=== PATIENT | female | born 1955 | race Caucasian/White ===

== ENCOUNTER 2017-09-19 09:29 | Outpatient (CLI) | payer OTHER | END 2017-09-19 09:30 | disposition home or self-care (01) | LOC: BICMAMMO 09:29 | PROVIDERS: ATTEND Obstetrics & Gynecology | DX: Z12.31 Encounter for screening mammogram for malignant neoplasm of breast (principal) | CPT/HCPCS: 77063; 77067 ==

== ENCOUNTER 2018-01-27 00:04 | Emergency (ER) | payer OTHER ==
[2018-01-27 00:55] LABS: #Basophils 0.1 thou/uL (0.0-0.2); #Eosinphils 0.2 thou/uL (0.0-0.7); #Lymphocytes 2.6 thou/uL (1.20-3.40); #Monocytes 0.8 thou/uL (0.11-0.59); #Neutrophils 8.2 thou/uL (1.40-6.50); %Basophils 0.6 % (0.0-1.0); %Eosinophils 1.5 % (0.0-10.0); %Lymphocytes 21.7 % (21.0-51.0); %Monocytes 6.8 % (0.0-10.0); %Neutrophils 69.3 % (42.0-75.0); Hemoglobin 12.7 g/dL (12.0-16.0); Mean Corpuscular HGB CONC 33.2 g/dL (32.0-36.0); Mean Corpuscular Hemoglobin 29.8 pg (27.0-31.0); Mean Corpuscular Volume 89.9 fL (78.0-98.0); Mean Platelet Volume 7.3 fL (7.4-10.4); Platelet Count 290 thou/uL (130-400); RBC Distribution Width 11.1 % (11.5-14.5); Red Blood Cell (RBC) Count 4.27 mill/uL (4.20-5.40); White Blood Cell (WBC) Count 11.8 thou/uL (4.8-10.8)
[2018-01-27] MEDS ORDERED: Ondansetron PF 4 MG/2 ML Vial ONE (01:13)
[2018-01-27] MEDS ORDERED: Glycopyrrolate 0.2 MG/ML 5 ML SYRINGE SLOW IVP SCH (01:15)
[2018-01-27] MEDS ORDERED: Glycopyrrolate 0.4 MG/ 2 ML VIAL SLOW IVP SCH (01:15)
[2018-01-27 01:17] LABS: ALT (SGPT) 14 U/L (8-55); AST (SGOT) 16 U/L (5-34); Albumin 4.1 g/dL (3.4-4.8); Alkaline Phosphatase 104 U/L (40-150); Anion Gap 12 mmol/L (10-20); BUN (Urea Nitrogen) 22 mg/dL (9.8-20.1); Bilirubin, Total 0.2 mg/dL (0.2-1.2); Calc. Creatinine Clearance 0 mL/min (70-130); Calcium 9.1 mg/dL (7.8-10.44); Carbon Dioxide 24 mmol/L (23-31); Chloride 103 mmol/L (98-107); Estimated GFR-MDRD 69; Globulin 3.8 g/dL (2.4-3.5); Glucose 129 mg/dL (80-115); Lipase 25 U/L (8-78); Potassium 3.7 mmol/L (3.5-5.1); Protein, Total 7.9 g/dL (6.0-8.3); Sodium 135 mmol/L (136-145)
[2018-01-27 01:36] LABS: Bilirubin Negative (Negative); Blood, Urine Negative (Negative); Clarity CLEAR (Clear); Glucose, Urine (Dipstick) Negative (Negative); Leukocyte Trace (Negative); Nitrite Negative (Negative); Protein, Urine (Dipstick) Negative (Neg-Trace); Specific Gravity, Urine 1.012 (1.002-1.036); pH, Urine 7.5 (5.0-9.0)
[2018-01-27 01:38] LABS: Bacteria/HPF None Seen HPF (None Seen); Hyaline Casts/LPF 0-3 HYALINE CAST LPF (0-3 Hyaline); Pathc Cast-AUWi Flag 0.43 (0-2.49); RBC/HPF 0-3 HPF (0-3); Squamous Epithelial 0-3 HPF (0-3); WBC/HPF 0-3 HPF (0-3)
[2018-01-27] MEDS ORDERED: Promethazine HCl 25 MG/ML VIAL ONE (01:43)
[2018-01-27] MEDS ORDERED: Promethazine 25 MG TAB ONE (01:44)
--- NOTE | 2018-01-27 08:07 | RAD ---
PORTABLE UPRIGHT FRONTAL CHEST RADIOGRAPH: Date: 01/27/18 COMPARISON: None. HISTORY: Pain, diarrhea. FINDINGS: Lungs are clear. Heart and mediastinal contours unremarkable. IMPRESSION: No acute findings. POS: [facility]
== END 2018-01-27 02:33 | disposition home or self-care (01) ==
LOC: ERS 00:04
DX: R11.2 Nausea with vomiting, unspecified (principal); R19.7 Diarrhea, unspecified; M19.90 Unspecified osteoarthritis, unspecified site; I10 Essential (primary) hypertension; F41.9 Anxiety disorder, unspecified; Z79.899 Other long term (current) drug therapy
CPT/HCPCS: 71045; 80053; 81003; 81015; 83605; 83690; 85025; 93005; 96361; 96374; 96375; J2405; J2550

== ENCOUNTER 2019-01-14 12:35 | Outpatient (CLI) | payer OTHER ==
--- NOTE | 2019-01-14 12:57 | RAD ---
2 view chest: [01/14/2019] Comparion:12/28/2018 HISTORY: Cough FINDINGS: Heart and mediastinal contours are grossly unremarkable. No pneumothorax or pleural fluid. No focal consolidation or alveolar edema. IMPRESSION: No acute findings.
== END 2019-01-14 12:36 | disposition home or self-care (01) ==
LOC: RAD 12:35
PROVIDERS: ATTEND Internal Medicine Pulmonary Disease
DX: R06.00 Dyspnea, unspecified (principal)
CPT/HCPCS: 71046

== ENCOUNTER 2021-08-10 13:46 | Outpatient (CLI) | payer MEDICARE, OTHER ==
[2021-08-10 14:30] LABS: #Basophils 0.1 10x3/uL (0.0-0.2); #Eosinphils 0.2 10x3/uL (0.0-0.5); #Monocytes 0.6 10x3/uL (0.0-1.1); %Basophils 1.1 % (0.0-2.0); %Eosinophils 3.2 % (0.0-6.0); %Lymphocytes 34.4 % (18.0-47.0); %Neutrophils 53.2 % (40.0-75.0); Hemoglobin 12.4 g/dL (12.0-15.5); Mean Corpuscular HGB CONC 32.9 g/dL (32.0-36.0); Mean Corpuscular Hemoglobin 29.8 pg (27.0-33.0); Mean Corpuscular Volume 90.6 fl (81.6-98.3); Mean Platelet Volume 10.3 fl (7.4-10.4); Platelet Count 263 10x3/uL (150-450); RBC Distribution Width 12.9 % (11.5-14.5); Red Blood Cell (RBC) Count 4.16 10x6/uL (3.90-5.03); White Blood Cell (WBC) Count 7.6 10x3/uL (3.5-10.5)
[2021-08-10 14:45] LABS: Prothrombin Time 10.4 sec (9.5-12.1)
[2021-08-10 15:00] LABS: Anion Gap 12 mmol/L (10-20); BUN (Urea Nitrogen) 12 mg/dL (9.8-20.1); Calc. Creatinine Clearance 0 mL/min (70-130); Calcium 8.8 mg/dL (7.8-10.44); Carbon Dioxide 27 mmol/L (23-31); Chloride 103 mmol/L (98-107); Glucose 137 mg/dL (80-115); Potassium 4.3 mmol/L (3.5-5.1); Sodium 138 mmol/L (136-145)
== END 2021-08-10 13:47 | disposition home or self-care (01) ==
LOC: LABBT 13:46
PROVIDERS: ATTEND Orthopaedic Surgery
DX: Z01.818 Encounter for other preprocedural examination (principal); M17.11 Unilateral primary osteoarthritis, right knee; Z20.822 Contact with and (suspected) exposure to COVID-19
CPT/HCPCS: 80048; 85025; 85610; 87081; 93005; U0003; U0005; 93010

== ENCOUNTER 2021-08-15 06:30 | Observation (INO) | payer MEDICARE, OTHER ==
[2021-08-15] MEDS ORDERED: Tranexamic Acid 1,000 MG/10 ML VIAL ONE (07:31)
[2021-08-15] MEDS ORDERED: Sodium Chloride 0.9% 100 ML ONE ×2 (07:35→09:22)
[2021-08-15] MEDS ORDERED: Vancomycin 1.5 GRAM/300 ML BAG 1.5 GM in Premix Bag 1 BAG IVPB SCH (07:45)
[2021-08-15] MEDS ORDERED: Midazolam HCl 2 mg/2 ml Vial ONE (08:04)
[2021-08-15] MEDS ORDERED: Fentanyl 100 MCG/2 ML VIAL ONE ×3 (08:04→11:29)
[2021-08-15] MEDS ORDERED: Scopolamine 1.5 mg/72 hour Patch ONE (08:18)
[2021-08-15] MEDS ORDERED: Fentanyl 100 MCG/2 ML VIAL IV PRN (09:07)
[2021-08-15] MEDS ORDERED: diphenhydrAMINE 25 MG CAP PO PRN (09:08)
[2021-08-15] MEDS ORDERED: Promethazine HCl 25 MG/ML VIAL IM PRN ×2 (09:08→09:15)
[2021-08-15] MEDS ORDERED: Acetaminophen 325 MG TAB PO PRN (09:08)
[2021-08-15] MEDS ORDERED: Zolpidem Tartrate 5 MG TAB PO PRN ×2 (09:08→09:15)
[2021-08-15] MEDS ORDERED: Ondansetron PF 4 MG/2 ML Vial IVP PRN ×2 (09:08→09:15)
[2021-08-15] MEDS ORDERED: Meloxicam 15 MG TAB PO PRN (09:09)
[2021-08-15] MEDS ORDERED: Non-Formulary Item 1 EACH (Albuterol Sulfate [Albuterol Sulfate Hfa] 8.5 GM Hfa.Aer.Ad) IH PRN (09:09)
[2021-08-15] MEDS ORDERED: fentaNYL Citrate/PF 100 MCG/2 ML SYRINGE ONE ×2 (09:09→10:06)
[2021-08-15] MEDS ORDERED: Ropivacaine 0.2% 550 ML 550 ML NERVE BLCK SCH (09:15)
[2021-08-15] MEDS ORDERED: HYDROcodone/Acetaminophen 10/325 mg Tablet PO PRN (09:15)
[2021-08-15] MEDS ORDERED: ceFAZolin 2 GM/Dextrose 50 ML 2 GM in Premix Bag 1 BAG IVPB SCH (09:15)
[2021-08-15] MEDS ORDERED: traMADol HCl 50 MG TAB PO PRN ×2 (09:15)
[2021-08-15] MEDS ORDERED: EPINEPHrine 1 MG/ML AMP ONE (09:17)
[2021-08-15] MEDS ORDERED: Bupivacaine PF 0.5% 30 ML VIAL ONE (09:17)
[2021-08-15] MEDS ORDERED: Albuterol Sulfate 2.5 mg/3 ml Neb NEB PRN (09:20)
[2021-08-15] MEDS ORDERED: CEFAZOLIN 2 GM VIAL ONE (09:22)
[2021-08-15] MEDS ORDERED: Famotidine/PF 20 mg/2ml Vial ONE (09:25)
[2021-08-15] MEDS ORDERED: Meperidine HCl/PF 25 MG/ML VIAL ONE (11:29)
[2021-08-15] MEDS: Sodium Chloride 0.9% 1,000 ML IV SCH ×3 (13:17→21:43)
[2021-08-15] MEDS ORDERED: CEFAZOLIN 2 GM in Sodium Chloride 0.9% 100 ML IVPB SCH (14:00)
[2021-08-15] MEDS ORDERED: Ketorolac Tromethamine 30 MG/ML VIAL IM SCH (14:00)
[2021-08-15] MEDS: Ketorolac Tromethamine 30 MG/ML VIAL IVP SCH ×2 (14:03→17:38)
[2021-08-15] MEDS: CEFAZOLIN 2 GM in Sodium Chloride 0.9% 100 ML IVPB SCH (17:39)
[2021-08-15] MEDS: HYDROcodone/Acetaminophen 10/325 mg Tablet PO PRN ×2 (18:17→21:47)
[2021-08-15] MEDS: Mometasone 200 MCG/Formoterol 5 MCG 120 PUFF INHALER INH SCH (19:07)
[2021-08-15 20:01] VITALS: BMI 42.7
[2021-08-15] MEDS: Aspirin 81 mg Enteric Coated Tablet PO SCH (21:44)
[2021-08-15] MEDS: hydrOXYzine 10 MG TAB PO SCH (21:44)
[2021-08-15] MEDS: Senokot S 8.6-50 MG TAB PO SCH (21:45)
[2021-08-15] MEDS: Ferrous Gluconate 324 MG TAB PO SCH (21:45)
[2021-08-16] MEDS: Ketorolac Tromethamine 30 MG/ML VIAL IVP SCH ×3 (00:14→12:15)
[2021-08-16] MEDS: CEFAZOLIN 2 GM in Sodium Chloride 0.9% 100 ML IVPB SCH (03:49)
[2021-08-16] MEDS: Sodium Chloride 0.9% 1,000 ML IV SCH ×2 (04:02→16:03)
[2021-08-16] MEDS: HYDROcodone/Acetaminophen 10/325 mg Tablet PO PRN ×2 (05:38→14:54)
[2021-08-16 05:58] LABS: Hemoglobin 10.5 g/dL (12.0-16.0); Mean Corpuscular HGB CONC 32.6 g/dL (32.0-36.0); Mean Corpuscular Hemoglobin 30.7 pg (27.0-31.0); Mean Corpuscular Volume 94.3 fL (78.0-98.0); Mean Platelet Volume 7.7 fL (7.4-10.4); Platelet Count 212 thou/uL (130-400); RBC Distribution Width 11.4 % (11.5-14.5); Red Blood Cell (RBC) Count 3.41 mill/uL (4.20-5.40); White Blood Cell (WBC) Count 9.6 thou/uL (4.8-10.8)
[2021-08-16] MEDS: Mometasone 200 MCG/Formoterol 5 MCG 120 PUFF INHALER INH SCH (07:37)
[2021-08-16] MEDS: Ferrous Gluconate 324 MG TAB PO SCH (08:49)
[2021-08-16] MEDS: Aspirin 81 mg Enteric Coated Tablet PO SCH (08:50)
[2021-08-16] MEDS: hydrOXYzine 10 MG TAB PO SCH (08:50)
[2021-08-16] MEDS: Senokot S 8.6-50 MG TAB PO SCH (08:52)
[2021-08-16] MEDS ORDERED: ASCORBATE CALCIUM PO SCH (09:00)
[2021-08-16] MEDS ORDERED: [UNRECOGNIZED DRUG - OTHER] PO SCH (09:00)
[2021-08-16] MEDS ORDERED: Ascorbic Acid 500 mg Chewable Tablet PO SCH (09:00)
[2021-08-16] MEDS ORDERED: VIT B COMPLEX PO SCH ×2 (09:00)
[2021-08-16] MEDS ORDERED: Stress 600 With Zinc 1 TAB PO SCH (09:00)
[2021-08-16] MEDS ORDERED: Non-Formulary Item 1 EACH (Budesonide/Formoterol Fumarate [Budesonide-Formoterol 160-4.5] IH SCH (09:00)
[2021-08-16] MEDS ORDERED: Multivitamin W/ Minerals 1 TAB PO SCH (09:00)
[2021-08-16] MEDS ORDERED: ZINC PO SCH ×2 (09:00)
[2021-08-16] MEDS ORDERED: PARoxetine 20 MG TAB PO SCH (09:00)
[2021-08-16] MEDS ORDERED: Non-Formulary Item 1 EACH (Paroxetine Hcl [Paroxetine Hcl] 10 MG Tablet) PO SCH (09:00)
[2021-08-16] MEDS ORDERED: BIOFLAVONOID PO SCH (09:00)
[2021-08-16] MEDS ORDERED: [UNRECOGNIZED DRUG - OTHER] PO SCH (09:00)
[2021-08-16] MEDS ORDERED: MANGANESE PO SCH ×2 (09:00)
[2021-08-16 11:59] VITALS: BP 130/68; TEMP 98.2
== END 2021-08-16 15:15 | disposition home or self-care (01) ==
LOC: SDC 06:30 → SJJU 09:08 → SDC 17:00 → SJJU 17:47
PROVIDERS: ADMIT Orthopaedic Surgery; ATTEND Orthopaedic Surgery
PROC: 0SRC0J9 Replacement of Right Knee Joint with Synthetic Substitute, Cemented, Open Approach (ICD-10-PCS; principal; 2021-08-15)
PROC: 8E0YXBZ Computer Assisted Procedure of Lower Extremity (ICD-10-PCS; 2021-08-15)
PROC: 3E0T3BZ Introduction of Anesthetic Agent into Peripheral Nerves and Plexi, Percutaneous Approach (ICD-10-PCS; 2021-08-15)
DX: M17.11 Unilateral primary osteoarthritis, right knee (principal); M79.7 Fibromyalgia; J45.909 Unspecified asthma, uncomplicated; Z79.899 Other long term (current) drug therapy; Z88.2 Allergy status to sulfonamides; Z88.6 Allergy status to analgesic agent; Z91.011 Allergy to milk products
CPT/HCPCS: 20985; 27447; 64448; 73560; 85027; 94640 ×2; 97110 ×2; 97116 ×2; 97139 ×3; 97530; A4306; C1713; C1776; J3370; 36415; 96365; 96375; 96376; G0378; J0171; J0690; J1885; J2175; J2250; J2795; J3010; J3490; J7050; S0020; S0028